=== PATIENT | male | born 1995 | race Two or more races ===

== ENCOUNTER 2024-09-14 16:18 | Emergency (ER) | payer MEDICAID, OTHER ==
[~2024-09-14] VITALS: Ht 167.6 cm; Wt 102.1 kg
[2024-09-14] MEDS: MORPHINE SULFATE INJ 2 MG/ML DISP.SYRIN IV ONE (16:57)
[2024-09-14] MEDS: IV NS 0.9% 1,000 ML BAG IV ONE (17:00)
[2024-09-14 17:01] LABS: BASOPHILS # (AUTO) 0.1 K/uL (0.0-0.2); BASOPHILS % (AUTO) 0.7 % (0.0-2.0); EOSINOPHILS # (AUTO) 0.1 K/uL (0.0-0.7); EOSINOPHILS % (AUTO) 0.8 % (0.0-6.0); HEMATOCRIT 44 % (39-51); HEMOGLOBIN 14.7 g/dL (13.5-17.5); LYMPHOCYTES # (AUTO) 1.3 K/uL (0.8-4.8); LYMPHOCYTES % (AUTO) 15.9 % (20.0-44.0); MEAN CORPUSCULAR HEMOGLOBIN 31 PG (26.0-33.0); MEAN CORPUSCULAR HGB CONC 33 g/dl (31.0-36.0); MEAN CORPUSCULAR VOLUME 93 fL (80-96); MONOCYTES # (AUTO) 0.6 K/uL (0.1-1.30); MONOCYTES % (AUTO) 7.2 % (2.0-12.0); NEUTROPHILS # (AUTO) 6.3 K/uL (1.8-8.9); NEUTROPHILS % (AUTO) 75.4 % (43.0-81.0); PLATELET COUNT (AUTO) 307 K/uL (150-450); RED BLOOD CELL COUNT(AUTO) 4.74 MIL/uL (4.5-6.0); RED CELL DISTRIBUTION WIDTH 14.5 % (11.5-15.0); WHITE BLOOD COUNT (AUTO) 8.3 K/uL (4.3-11.0)
[2024-09-14] MEDS: ONDANSETRON HCL/PF 4 MG/2 ML VIAL IVP ONE (17:02)
[2024-09-14] MEDS ORDERED: IV NS 0.9% 250 ML IV ONE (17:13)
[2024-09-14] MEDS ORDERED: IOHEXOL-300 100 ML VIAL IV ONE (17:13)
[2024-09-14 17:17] LABS: BILIRUBIN,DIRECT 0.2 mg/dL (0.0-0.2); BILIRUBIN,TOTAL 0.7 mg/dL (0.2-1.0); CALCIUM, SERUM 9.2 mg/dL (8.5-10.1); CREATININE 1.7 mg/dL (0.6-1.3); POTASSIUM 4.9 mmol/L (3.5-5.1)
[2024-09-14 21:51] VITALS: BP 121/81; TEMP 98; O2SAT 99
== END 2024-09-14 21:52 | disposition left against medical advice (07) ==
LOC: ER 16:28
DX: R19.00 Intra-abdominal and pelvic swelling, mass and lump, unspecified site (principal); R11.2 Nausea with vomiting, unspecified; I42.9 Cardiomyopathy, unspecified; I50.9 Heart failure, unspecified; K59.00 Constipation, unspecified; N17.9 Acute kidney failure, unspecified
CPT/HCPCS: 99291; 74177; 96360; 76705; 71045; 93005; 85025; 80048; 83690; 80076; 36415; 84484; 83880; J7030; J7050; A4223; Q9967

== ENCOUNTER 2025-07-23 09:10 | Emergency (ER) | payer MEDICAID, OTHER ==
[~2025-07-23] VITALS: Ht 167.6 cm; Wt 113.4 kg
[2025-07-23 09:15] VITALS: BP 149/80; TEMP 97.9
[2025-07-23] MEDS ORDERED: METH4TAB17 PO (09:35)
[2025-07-23 09:39] VITALS: O2SAT 100
== END 2025-07-23 09:40 | disposition home or self-care (01) ==
LOC: ER 09:13
DX: M79.671 Pain in right foot (principal)